=== PATIENT | male | born 1975 | race Caucasian/White ===

== ENCOUNTER 2017-05-23 18:41 | Emergency (ER) | payer SELFPAY ==
[~2017-05-23] VITALS: Ht 175.3 cm; Wt 88.9 kg
[2017-05-23 21:02] LABS: BASOPHIL % 0.4 % (0-2); PLATELET COUNT 261 x10^3mcL (130-400); RED CELL DISTRIBUTION WIDTH 12.5 % (11.5-14.5)
[2017-05-23 21:33] VITALS: BP 151/100
== END 2017-05-23 21:33 | disposition home or self-care (01) ==
LOC: ED 18:41
PROVIDERS: Emergency Medicine
DX: K62.5 Hemorrhage of anus and rectum (principal); K64.9 Unspecified hemorrhoids
CPT/HCPCS: 36415